=== PATIENT | female | born 1935 | race Caucasian/White ===

== ENCOUNTER 2018-08-02 10:13 | Emergency (ER) | payer MEDICARE, MEDICAID, OTHER ==
[~2018-08-02] VITALS: Ht 154.9 cm; Wt 59.0 kg
[~2018-08-02 10:13] MED LIST: COLC0.6T2 PO; HYDR-1348 PO
[2018-08-02] MEDS ORDERED: HYDROCODONE/ACETAMINOPHEN 5/325MG TABLET PO STA (12:59)
[2018-08-02 15:40] VITALS: BP 132/82
== END 2018-08-02 15:50 | disposition home or self-care (01) ==
LOC: ER 10:13
DX: M54.2 Cervicalgia (principal); M47.892 Other spondylosis, cervical region; I10 Essential (primary) hypertension; M19.90 Unspecified osteoarthritis, unspecified site
CPT/HCPCS: 99284